=== PATIENT | female | born 1975 | race Native Hawaiian/Other Pacific Islander ===

== ENCOUNTER 2019-12-29 08:36 | Outpatient (CLI) | payer OTHER | END 2019-12-29 19:11 | disposition home or self-care (01) | LOC: MAMMO 08:36 | DX: R92.2 Inconclusive mammogram (principal); N63.0 Unspecified lump in unspecified breast | CPT/HCPCS: G0279 ==

== ENCOUNTER 2020-03-19 10:55 | Outpatient (CLI) | payer OTHER | END 2020-03-19 21:49 | disposition home or self-care (01) | LOC: US 10:55 | DX: R10.2 Pelvic and perineal pain (principal) ==

== ENCOUNTER 2022-05-08 09:46 | Outpatient (CLI) | payer OTHER | END 2022-05-08 19:23 | disposition home or self-care (01) | LOC: MAMMO 09:46 | PROVIDERS: ATTEND Internal Medicine | DX: Z12.31 Encounter for screening mammogram for malignant neoplasm of breast (principal) ==